=== PATIENT | female | born 1995 | race Asian ===

== ENCOUNTER 2016-07-02 13:17 | Inpatient (IN) | payer OTHER ==
[~2016-07-02] VITALS: Ht 162.6 cm; Wt 57.2 kg
[2016-07-02 14:30] LABS: BASO % 0.2 %; BASO ABS # 0.01 K/uL (0-0.2); COMPLETE YES; EOS % 1.5 %; HEMATOCRIT 38.6 % (37-47); IG% 0.2 %; LYMPH % 38.7 %; LYMPH ABS # 1.85 K/uL (1.2-3.4); MEAN CELL VOLUME 88.7 fL (80-100); MEAN CORPUSCULAR HEMOGLOBIN 31.3 pg (25-34); MEAN CORPUSCULAR HGB CONC 35.2 g/dl (32-36); MEAN PLATELET VOLUME 8.5 fL (7.4-10.4); MONO % 6.7 %; NEUT % 52.7 %; PLATELET COUNT 218 K/uL (130-400); RED BLOOD COUNT 4.35 M/uL (4.2-5.4); WHITE BLOOD COUNT 4.78 K/uL (4.8-10.8)
[2016-07-02 14:32] LABS: URINE APPEARANCE CLEAR (CLEAR); URINE BILIRUBIN NEG (NEG); URINE COLOR YELLOW; URINE NITRITE NEG (NEG); URINE PH 7.5 (4.5-7.5); URINE SPECIFIC GRAVITY 1.012 (1.000-1.030); UROBILINOGEN NEG (NEG); ZZUR CULT IF INDIC CLEAN CATCH NO
[2016-07-02 14:41] LABS: MANUAL MICROSCOPIC REQUIRED? NO; REVIEW REQ? NO
[2016-07-02 14:49] LABS: ALT/SGPT 17 U/L (12-78); AST/SGOT 14 U/L (15-37); BLOOD UREA NITROGEN 7 mg/dl (7-18); BUN/CREATININE RATIO 13.1 (10-20); CALCIUM 8.7 mg/dl (8.5-10.1); CARBON DIOXIDE 28 mmol/L (21-32); CHLORIDE 108 mmol/L (98-107); CREATININE 0.57 mg/dl (0.60-1.20); GLUCOSE 94 mg/dl (70-99); POTASSIUM 3.7 mmol/L (3.5-5.1); SODIUM 142 mmol/L (136-145)
[2016-07-02 14:51] LABS: BENZODIAZEPINE, URINE NEG (NEG); COCAINE,URINE NEG (NEG); PHENCYCLIDINE, URINE NEG (NEG)
[2016-07-02 14:54] LABS: ACETAMINOPHEN < 2 ug/ml (10-30)
[2016-07-02 15:00] LABS: ALB/GLOB RATIO 1.3 (0.9-2); ALKALINE PHOSPHATASE 69 U/L (45-117); THYROID STIMULATING HORMONE 0.936 uIu/ml (0.300-4.500)
[2016-07-02 15:35] VITALS: O2SAT 98
[2016-07-02] MEDS ORDERED: MAGNESIUM HYDROXIDE SUSP 30 ML UDC PO PRN (16:15)
[2016-07-02] MEDS ORDERED: hydrOXYzine HCL 25 MG TAB PO PRN ×2 (16:15)
[2016-07-02] MEDS ORDERED: ALUMINUM/MAGNESIUM SUSP 30 ML UDC PO PRN (16:15)
[2016-07-02] MEDS ORDERED: ACETAMINOPHEN 325 MG TAB PO PRN (16:15)
[2016-07-02] MEDS ORDERED: SODIUM CHLORIDE 0.65% NA SOLN 45 ML (OCEAN) PRN (16:15)
[2016-07-02] MEDS ORDERED: BISMUTH SUBSALICYLATE PER ML OMNICELL CHARGE PO PRN (16:15)
--- NOTE | 2016-07-02 16:19 | EMERGENCY ROOM VISIT NOTE ---
History First contact with patient: 14:00 Chief Complaint: MENTAL HEALTH EVALUATION Stated Complaint: SEVERE DEPRESSOIN History of Present Illness The patient is a 21 year old female who was sent here by her counselor presents to the Emergency Room with complaints of severe depression and thoughts of suicide. The patient states that she has had depression most of her life. She has refused to be on any depression medications in the past. The patient has tried to commit suicide in the past with cutting and overdose of Benadryl. The patient states that recently her depressive symptoms have been getting worse especially since last . She was thinking of cutting herself or trying to obtain blood thinners and overdosing on blood thinners. She saw her counselor, Marni on Wednesday and told her of her thoughts and feelings. Her counselor set her up for a psych evaluation at [facility] for next Wednesday. She went back to her counselor, Marni today and she referred her to the ER for her suicidal ideations. The patient states that she is a senior at [employer] and does not have a job lined up for after graduation. 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 Although the patient now states that her friend from [place] was here to visit this weekend and she has a plan now after graduation to move to [place] with her friend and just find a job when she gets there. The patient states that her parents are and she does not feel that she can talk to them about her problems. She has 2 siblings a sister who is 25 and a brother who is 24. She is able to talk with her sister but most of her support comes from her friends. The patient continues to admit to suicidal ideations of cutting herself or overdosing on some type of medication. She denies any homicidal ideations. She is eating okay she states that she is sleeping more than normal. She has missed a few classes over the last several days. The patient is only activity is that she likes to run on occasion. She does not have any other hobbies. The patient denies any medical problems. The patient does admit to have an ovarian cyst removed in the past. The patient denies current tobacco use or any alcohol use. The patient denies any illicit drug use. Review of Systems 10 system review was performed and was negative unless stated otherwise history of present illness. Past Medical/Surgical History Ovarian cyst removal, depression, suicidal ideations Social History Smoking Status: Former Smoker Alcohol Use: none Drug Use: none Marital Status: single Housing Status: lives with roommate Occupation Status: [employer] student Current/Historical Medications No Active Prescriptions or Reported Meds Allergies Coded Allergies: Apple (Unverified Allergy, Unknown, ITCHY, 07/02/16) BEE STING (Unverified Allergy, Unknown, SWELLING, 07/02/16) Physical Exam Vital Signs Date Time Temp Pulse Resp B/P Pulse Ox O2 Delivery O2 Flow Rate FiO2 07/02/16 13:20 36.6 74 16 123/79 96 Physical Exam GENERAL: 21-year-old female appears in no acute distress. MENTAL Status: Patient is alert and oriented 3. The patient's affect is flat. She is not tearful. She answers questions appropriately. She is not aggressive in nature. EYES: PERRLA. EOMs intact. EARS: Canals clear. TMs without fluid level noted. NECK: Supple, no lymphadenopathy noted. No carotid bruits noted. LUNGS: Clear auscultation without wheezes rales or rhonchi. CARDIAC: Regular rate and rhythm without murmur. Pulses is full and equal throughout. ABDOMEN: Positive bowel sounds all 4 quadrants. Soft, nontender to palpation without organomegaly or masses. NEURO:Cranial nerves two through 12 intact. Cerebellar function intact with [id number]. Fine motor intact with alternating finger motions. MUSCULOSKELETAL: Entire spine nontender to palpation. Full range of motion of both upper and lower extremities without difficulty. Medical Decision & Procedures Laboratory Results 07/02/16 14:15 Red Blood Count 4.35, Mean Corpuscular Volume 88.7, Mean Corpuscular Hemoglobin 31.3, Mean Corpuscular Hemoglobin Concent 35.2, Mean Platelet Volume 8.5, Neutrophils (%) (Auto) 52.7, Lymphocytes (%) (Auto) 38.7, Monocytes (%) (Auto) 6.7, Eosinophils (%) (Auto) 1.5, Basophils (%) (Auto) 0.2, Neutrophils # (Auto) 2.52, Lymphocytes # (Auto) 1.85, Monocytes # (Auto) 0.32, Eosinophils # (Auto) 0.07, Basophils # (Auto) 0.01 07/02/16 14:15 Test 07/02/16 13:30 07/02/16 14:15 Urine Color YELLOW Urine Appearance CLEAR (CLEAR) Urine pH 7.5 (4.5-7.5) Urine Specific [place] 1.012 (1.000-1.030) Urine Protein NEG (NEG) Urine Glucose (UA) NEG (NEG) Urine Ketones NEG (NEG) Urine Occult Blood NEG (NEG) Urine Nitrite NEG (NEG) Urine Bilirubin NEG (NEG) Urine Urobilinogen NEG (NEG) Urine Leukocyte Esterase NEG (NEG) Urine Test NEG (NEG) Urine Opiates Screen NEG (NEG) Urine Methadone, Qualitative NEG (NEG) Urine Barbiturates NEG (NEG) Urine Phencyclidine (PCP) Level NEG (NEG) Ur Amphetamine/Methamphetamine NEG (NEG) MDMA (Ecstasy) Screen NEG (NEG) Urine Benzodiazepines Screen NEG (NEG) Urine Cocaine Metabolite NEG (NEG) Urine Marijuana (THC) NEG (NEG) White Blood Count 4.78 K/uL (4.8-10.8) Red Blood Count 4.35 M/uL (4.2-5.4) Hemoglobin 13.6 g/dL (12.0-16.0) Hematocrit 38.6 % (37-47) Mean Corpuscular Volume 88.7 fL (80-100) Mean Corpuscular Hemoglobin 31.3 pg (25-34) Mean Corpuscular Hemoglobin Concent 35.2 g/dl (32-36) Platelet Count 218 K/uL (130-400) Mean Platelet Volume 8.5 fL (7.4-10.4) Neutrophils (%) (Auto) 52.7 % Lymphocytes (%) (Auto) 38.7 % Monocytes (%) (Auto) 6.7 % Eosinophils (%) (Auto) 1.5 % Basophils (%) (Auto) 0.2 % Neutrophils # (Auto) 2.52 K/uL (1.4-6.5) Lymphocytes # (Auto) 1.85 K/uL (1.2-3.4) Monocytes # (Auto) 0.32 K/uL (0.11-0.59) Eosinophils # (Auto) 0.07 K/uL (0-0.5) Basophils # (Auto) 0.01 K/uL (0-0.2) RDW Standard Deviation 39.0 fL (36.4-46.3) RDW Coefficient of Variation 12.1 % (11.5-14.5) Immature Granulocyte % (Auto) 0.2 % Immature Granulocyte # (Auto) 0.01 K/uL (0.00-0.02) Anion Gap 6.0 mmol/L (3-11) Est Creatinine Clear Calc Drug Dose 133.8 ml/min Estimated GFR () > 150.0 Estimated GFR (Non- 131.6 BUN/Creatinine Ratio 13.1 (10-20) Calcium Level 8.7 mg/dl (8.5-10.1) Total Bilirubin 0.6 mg/dl (0.2-1) Aspartate Amino Transf (AST/SGOT) 14 U/L (15-37) Alanine Aminotransferase (ALT/SGPT) 17 U/L (12-78) Alkaline Phosphatase 69 U/L (45-117) Total Protein 7.0 gm/dl (6.4-8.2) Albumin 3.9 gm/dl (3.4-5.0) Globulin 3.1 gm/dl (2.5-4.0) Albumin/Globulin Ratio 1.3 (0.9-2) Thyroid Stimulating Hormone (TSH) 0.936 uIu/ml (0.300-4.500) Salicylates Level < 1.7 mg/dl (2.8-20) Acetaminophen Level < 2 ug/ml (10-30) Ethyl Alcohol mg/dL < 3.0 mg/dl (0-3) ED Course The patient was evaluated. Urinalysis, urine tox screen was ordered. CBC complete metabolic profile, TSH, medical alcohol, acetaminophen and salicylate level were ordered. Labs are reviewed and were unremarkable. Urinalysis was negative. Urine tox screen was negative. The patient was evaluated by psychology. Psychiatry recommended that the patient be admitted. The patient was admitted. Impression Primary Impression: Depression Additional Impression: Suicidal ideation Departure Information Dispostion Admitted as an inpatient Condition GOOD Prescriptions No Active Prescriptions or Reported Meds Referrals No Doctor, Assigned (PCP) Forms HOME CARE DOCUMENTATION FORM, IMPORTANT VISIT INFORMATION Patient Instructions [facility] Health Problem Qualifiers Primary Impression: Depression Depression Type: unspecified Qualified Codes: F32.9 - Major depressive disorder, single episode, unspecified
[2016-07-02 16:38] VITALS: BP 99/65; PULSE 70; TEMP 36.6; Ht 162.6 cm; Wt 57.2 kg
[2016-07-03 06:43] VITALS: BP_SYST 93; BP_SYST 95; BP_DIAS 60; BP_DIAS 62; PULSE 66; PULSE 71; TEMP 36.5
[2016-07-03] MEDS ORDERED: FLUOXETINE HCL 10 MG CAP PO ONE (14:00)
--- NOTE | 2016-07-03 14:01 | Psychiatric History & Physical ---
History Date of Service Jul 03, 2016. 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 Carlene Torre was admitted on a 201 voluntary commitment for suicidal ideation. Chief Complaint "I started cutting again". History of Present Illness Carlene relates a history of depressive symptoms throughout middle/high school with family stressors. At one point she was engaging in superficial self mutilation on an almost daily basis to relieve stress. She states that this semester has been difficult as taking 6 classes and "going through the motions" to complete graduation requirements. She admits to superficial cut last week due to stress and passive wish/urges to self injure at various points this semester. Low energy, anhedonia and increased sleep worsened in past 2-3 weeks despite counseling with someone from a local denominational. She had increased thoughts to cut, thought that if she somehow procured blood thinners it would be a good way to end her life. She states that she and her roommate have a superficially amicable relationship but that her roommate noticed she's not herself. 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 She identifies her sister in [facility] as main support and relates that her mother previously accused her of having an inappropriate relationship with her brother (patient denies). She denies any history of manic symptoms. She does endorse anxiety about her future and nonspecific social anxiety related to crowds/etc. She has some history of nightmares but in general has been sleeping 9 hours as of late. She fails to endorse any psychotic symptoms. Past Psychiatric History Current OP Treatment: no current treatment (other than rastafari counseling) Prior OP Treatment: therapist (few sessions at [facility] last school year; also attended group therapy for depression) Prior Psych Hospitalizations: none Access to a Gun: No Suicide Attempts: Yes (has taken Benadryl in past, no treatment; cutting was SIB not attempt) Past Medication Trials none Past Medical/Surgical History History of Concussion/Seizure: No remote hx of ovarian cyst Allergies Allergies: Coded Allergies: Apple (Unverified Allergy, Unknown, ITCHY, 07/02/16) BEE STING (Unverified Allergy, Unknown, SWELLING, 07/02/16) Home Medications No Active Prescriptions or Reported Meds Family History History of Suicide: No History of Substance Abuse: No Psychiatric History: Yes father--schizophrenia mother/sibs--anxiety/depression Alcohol Use Alcohol Use In Past 12 Months: Yes (drinks one drink less than once per week.) AUDIT Total Score: 2 Smoking Use Smoking Status: Former Smoker Substance History denied since more rastafari, occasional MJ prior to 1 year ago. Personal History Childhood: parents , youngest of 3 sibs Education: started college (few weeks from graduation) Work History: student Relationship History: never Children: none Spiritual Affiliation: Buddhism within past year Legal History: none Psychological Trauma History: Other (denied sexual abuse) Review of Systems Psych: denies symptoms other than stated above Constitutional: denied Cardiovascular: denied GI: denied Neurologic: denied Remainder of 10 body systems also reviewed and denied other than noted above. Examination Physical Examination A physical exam was performed in the ER by TESS Pryor prior to admission to the unit. I accept that physical as correct/medical clearance for the inpatient physical exam. Vital Signs Vital Signs Past 12 Hours Date Time Temp Pulse Resp B/P Pulse Ox O2 Delivery O2 Flow Rate FiO2 07/03/16 06:43 36.5 66 18 93/62 71 95/60 Laboratory Results Last 24 Hours Test 07/02/16 14:15 White Blood Count 4.78 K/uL Red Blood Count 4.35 M/uL Hemoglobin 13.6 g/dL Hematocrit 38.6 % Mean Corpuscular Volume 88.7 fL Mean Corpuscular Hemoglobin 31.3 pg Mean Corpuscular Hemoglobin Concent 35.2 g/dl Platelet Count 218 K/uL Mean Platelet Volume 8.5 fL Neutrophils (%) (Auto) 52.7 % Lymphocytes (%) (Auto) 38.7 % Monocytes (%) (Auto) 6.7 % Eosinophils (%) (Auto) 1.5 % Basophils (%) (Auto) 0.2 % Neutrophils # (Auto) 2.52 K/uL Lymphocytes # (Auto) 1.85 K/uL Monocytes # (Auto) 0.32 K/uL Eosinophils # (Auto) 0.07 K/uL Basophils # (Auto) 0.01 K/uL RDW Standard Deviation 39.0 fL RDW Coefficient of Variation 12.1 % Immature Granulocyte % (Auto) 0.2 % Immature Granulocyte # (Auto) 0.01 K/uL Sodium Level 142 mmol/L Potassium Level 3.7 mmol/L Chloride Level 108 mmol/L Carbon Dioxide Level 28 mmol/L Anion Gap 6.0 mmol/L Blood Urea Nitrogen 7 mg/dl Creatinine 0.57 mg/dl Est Creatinine Clear Calc Drug Dose 133.8 ml/min Estimated GFR () > 150.0 Estimated GFR (Non- 131.6 BUN/Creatinine Ratio 13.1 Random Glucose 94 mg/dl Calcium Level 8.7 mg/dl Total Bilirubin 0.6 mg/dl Aspartate Amino Transf (AST/SGOT) 14 U/L Alanine Aminotransferase (ALT/SGPT) 17 U/L Alkaline Phosphatase 69 U/L Total Protein 7.0 gm/dl Albumin 3.9 gm/dl Globulin 3.1 gm/dl Albumin/Globulin Ratio 1.3 Thyroid Stimulating Hormone (TSH) 0.936 uIu/ml Salicylates Level < 1.7 mg/dl Acetaminophen Level < 2 ug/ml Ethyl Alcohol mg/dL < 3.0 mg/dl Mental Examination During interview pt is: alert and oriented Appearance: appropriately dressed, appropriately groomed Eye contact is: good Motor behavior is: no abnormal motor movements Speech: normal in rate, rhythm & volume Affect: mood congruent Mood is: depressed Thought process: clear, coherent Suicidal thought are: present, Plan: present, Intent: denied Homicidal thoughts are: denied Hallucinations: denies auditory, denies visual Cognition: language grossly intact Intelligence estimated to be: consistent with level of education Insight: limited Judgement: limited Impression / Recommendations Impression 21 yo female with history of recurrent SIB, presents with SI with plan. The patient is admitted to [facility] ([facility]) on q 15 min checks (behavioral with suicide precautions) for safety. The patient will participate in group, recreational and milieu therapies and will be offered additional individual and family sessions as clinically appropriate. Inventory Assets Strengths: intelligent, brendan Needs: increase in local supports pending graduation Risk Factors Assessment /single/: Yes Access to guns: No Previous attempt: Yes Previous psychiatric stay: No Protective Factors Assessment Shinto beliefs: Yes Employed: No Stable relationships: Yes (denominational, though will be graduating, considering [place]) Recommendations (1) Major depressive disorder, recurrent episode with anxious distress 4/7/17--risks/benefits/alternatives reviewed re: SSRI for rx of depression. Discussion included but was not limited to FDA warnings re: suicidality. Patient agreeable to a trial of Prozac and will start 10 mg today. She would benefit from more formal outpatient counseling and will need a psychiatric prescriber per . CPT Code Initial Hospital Care: 10564
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
[2016-07-04 06:44] VITALS: BP_SYST 84; BP_SYST 96; BP_DIAS 45; BP_DIAS 62; PULSE 54; PULSE 62; TEMP 36.5
--- NOTE | 2016-07-04 07:46 | Psychiatric Progress Notes ---
Progress Note Date of Service Jul 04, 2016. 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 Carlene Torre was admitted on 07/02/16 a 201 voluntary commitment for suicidal ideation to take a tylenol ID and to cut herself in the shower. See full H&P dated 07/03/16 for initial history. Chief Complaint " I took a sleep medication last night and feel groggy this AM". Subjective Patient was seen & assessed interval progress reviewed with Nursing The patient did start prozac 10mg, today is second dose she is not certain if she is having side effects as this AM she did feel restless physical before her AM med she feels the conflict of wanting to sleep more after vistaril 50mg last night and knowing she should get up and go to activities. "I slept" and even now at 11am still feels groggy but feels she can pull herself out of bed after this interview. She denies thoughts for SIB here, but states she still sees suicide as an option meaning she is not actively suicidal but as part of her goals here is " to feel less depressed, and feel that suicide is less of an option" She reports that mood is a 7/10 as she feels hopeful that medications and ongoing treatment may be helpful SHe reports anxiety is a 5/10 worried about the amount of work she has to do She is motivated to participate in outpatient care but is unsure where she will be after graduation as her plans for the summer are in limbo (meaning she is not certain if she will go to the mission trip in [place] and/or if she will followthrough with her plans to move near a friend in [place]). She is graduating in [employer] degree and is not certain what she hopes to do with that degree, and does not have any concrete job options lined up. Review of Systems groggy this AM but o/w denies physical concerns, appetite intact, and denies changes in bowels, no BRYANT Sleep Information Total Hours of Sleep: 5.50 Meal Information Percent of Breakfast Consumed: 20 Percent of Lunch Consumed: 80 Percent of Dinner Consumed: 100 Mental Status Exam During interview pt is: alert and oriented Appearance: appropriately dressed, appropriately groomed Eye contact is: good Motor behavior is: no abnormal motor movements Speech: normal in rate, rhythm & volume Affect: blunted Mood is: depressed (rated however at a 7/10 which seems incongruent) Thought process: clear, coherent Suicidal thought are: present, Plan: present, Intent: denied Homicidal thoughts are: denied Hallucinations: denies auditory, denies visual Cognition: language grossly intact Intelligence estimated to be: consistent with level of education Insight: limited Judgement: limited Impression 21 yo female with history of recurrent SIB, presents with SI with plan. The patient is admitted to [facility] ([facility] mental health unit) on q 15 min checks (behavioral with suicide precautions) for safety. The patient will participate in group, recreational and milieu therapies and will be offered additional individual and family sessions as clinically appropriate. Plan (1) Major depressive disorder, recurrent episode with anxious distress 07/03/16 --risks/benefits/alternatives reviewed re: SSRI for rx of depression. Discussion included but was not limited to FDA warnings re: suicidality. Patient agreeable to a trial of Prozac and will start 10 mg today. She would benefit from more formal outpatient counseling and will need a psychiatric prescriber per SW. 07/04/16 - continue prozac 10mg as she was activated this AM and tired could have been SE of vistaril and/or prozac - change vistaril from 50mg/hs to 25mg at hs by 2100 with repeat x1 by 2300 to reduced Am grogginess - discussed role of aftercare and challenged patient to consider her plans after graduation to assist unit in finding appropriate aftercare, ideally that she would identify where she will spent the next 8-12 weeks after discharge to meet and establish relationship with provider(s) who can assess tolerabiltiy and effiicacy of meds and offer meaningful therapy treatment Discharge / Aftercare Planning Therapist: Name: Marni Blair Date of Appointment: Jul 06, 2016 Monitoring Analyst: Name: None Visit Code E&M Code: 54991 Inventory Assets Strengths: intelligent, brendan Needs: increase in local supports pending graduation Risk Factors Assessment /single/: Yes Previous attempt: Yes Previous psychiatric stay: No Protective Factors Assessment Tenriism beliefs: Yes Employed: No Stable relationships: Yes (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, 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 be 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, considering [place]) Data Vital Signs Last 24 Hrs: Date Time Temp Pulse Resp B/P Pulse Ox O2 Delivery O2 Flow Rate FiO2 07/04/16 06:44 36.5 54 16 84/45 62 96/62 Meds Administered Last 24 Hrs: Meds Administered (Past 24Hrs) Medications (Trade) Dose Ordered Sig/Terry Route Start Time Stop Time Status Last Admin Dose Admin Hydroxyzine HCl (Vistaril Tab) 50 mg HSZ PRN PO 07/02/16 16:15 08/01/16 16:14 07/03/16 23:27 50 MG Fluoxetine HCl (Prozac Cap) 10 mg NOW ONCE PO 07/03/16 14:00 07/03/16 14:05 DC 07/03/16 14:26 10 MG Lab Results Last 24 Hrs: Last 24 Hours Test 07/04/16 07:31 Fasting Glucose 86 mg/dl Triglycerides Level 40 mg/dl Cholesterol Level 151 mg/dl HDL Cholesterol 61 mg/dl LDL Cholesterol, Calculated 82 mg/dl VLDL Cholesterol, Calculated 8 mg/dl Cholesterol/HDL Ratio 2.5 Last 24 Hours Test 07/04/16 07:31
[2016-07-04 08:21] LABS: CHOLESTEROL/HDL RATIO 2.5
[2016-07-04] MEDS: FLUOXETINE HCL 10 MG CAP PO SCH (08:53)
[2016-07-04] MEDS ORDERED: hydrOXYzine HCL 25 MG TAB PO PRN (21:00)
[2016-07-05 06:47] VITALS: BP_SYST 75; BP_SYST 90; BP_DIAS 43; BP_DIAS 60; PULSE 62; PULSE 70; TEMP 36.8
[2016-07-05] MEDS: FLUOXETINE HCL 10 MG CAP PO SCH (08:52)
--- NOTE | 2016-07-05 11:19 | Psychiatric Progress Notes ---
Progress Note Date of Service Jul 05, 2016. 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 Carlene Torre was admitted on 07/02/16 a 201 voluntary commitment for suicidal ideation to take a tylenol ID and to cut herself in the shower. See full H&P dated 07/03/16 for initial history. Chief Complaint "I am less tired today". Subjective Patient was seen & assessed interval progress reviewed with Nursing and chart reviewed She had a visit with sister and a friend yesterday which seemed to go well. She continues on prozac 10mg, she slept overnight with vistaril 25mg x1 She feels "hopeful" and more like she can recover. SHe does feel a little shaky at this moment but has had a cup of coffee this AM and "i just exercised" She did not feel this way upon waking. SHe denies other overt SE of her prozac. She continues to consider her plans post graduation, will be in [facility] for a few months (e.g. meaning a mission trip in [place]) but if not she may try to go to [place] sooner. SHe does not have a PCM. Review of Systems No physical symptoms other than described above. Sleep Information Total Hours of Sleep: 6.50 Meal Information Percent of Breakfast Consumed: 99 Percent of Lunch Consumed: 100 Percent of Dinner Consumed: 100 Mental Status Exam During interview pt is: alert and oriented Appearance: appropriately dressed, appropriately groomed Eye contact is: good Motor behavior is: no abnormal motor movements Speech: normal in rate, rhythm & volume Affect: euthymic Mood is: other (today is "hopeful") Thought process: clear, coherent Suicidal thought are: present, Plan: present, Intent: denied Homicidal thoughts are: denied Hallucinations: denies auditory, denies visual Cognition: language grossly intact Intelligence estimated to be: consistent with level of education Insight: limited Judgement: limited Impression 21 yo female with history of recurrent SIB, presents with SI with plan. The patient is admitted to [facility] ([facility] inpatient mental health unit) on q 15 min checks (behavioral with suicide precautions) for safety. The patient will participate in group, recreational and milieu therapies and will be offered additional individual and family sessions as clinically appropriate. Plan (1) Major depressive disorder, recurrent episode with anxious distress 07/03/16 --risks/benefits/alternatives reviewed re: SSRI for rx of depression. Discussion included but was not limited to FDA warnings re: suicidality. Patient agreeable to a trial of Prozac and will start 10 mg today. She would benefit from more formal outpatient counseling and will need a psychiatric prescriber per . 07/04/16 - continue prozac 10mg as she was activated this AM and tired could have been SE of vistaril and/or prozac - change vistaril from 50mg/hs to 25mg at hs by 2100 with repeat x1 by 2300 to reduced Am grogginess - discussed role of aftercare and challenged patient to consider her plans after graduation to assist unit in finding appropriate aftercare, ideally that she would identify where she will spent the next 8-12 weeks after discharge to meet and establish relationship with provider(s) who can assess tolerability and efficacy of meds and offer meaningful therapy treatment 07/05/16 - continue vistaril 25mg/bedtime and prozac 10mg/d watching for activation as she feels mildly "jittery" this AM - the major issue is the patient's uncertainty with her destination after discharge and college graduation and where to get care, encouraged patient to consider location where she can have 1-3 months of continuity to have some stable f/u care and to make a firm footed move to [place] if she still intends to go there. Discharge / Aftercare Planning Therapist: Name: Marni Blair Date of Appointment: Jul 06, 2016 Hammer Fitter: Name: None Visit Code E&M Code: 28301 Inventory Assets Strengths: intelligent, brendan Needs: increase in local supports pending graduation Risk Factors Assessment /single/: Yes Previous attempt: Yes Previous psychiatric stay: No Protective Factors Assessment Congregation beliefs: Yes Employed: No Stable relationships: Yes (sikhism, though will be graduating, considering [place]) Data Vital Signs Last 24 Hrs: Date Time Temp Pulse Resp B/P Pulse Ox O2 Delivery O2 Flow Rate FiO2 07/05/16 06:47 36.8 62 16 75/43 70 90/60 Meds Administered Last 24 Hrs: Meds Administered (Past 24Hrs) Medications (Trade) Dose Ordered Sig/Terry Route Start Time Stop Time Status Last Admin Dose Admin Fluoxetine HCl (Prozac Cap) 10 mg QAM PO 07/04/16 09:00 08/03/16 08:59 07/04/16 08:53 10 MG Fluoxetine HCl (Prozac Cap) 10 mg NOW ONCE PO 07/03/16 14:00 07/03/16 14:05 DC 07/03/16 14:26 10 MG Hydroxyzine HCl (Vistaril Tab) 25 mg HSZ PRN PO 07/04/16 21:00 08/03/16 20:59 07/04/16 22:31 25 MG
[2016-07-06 06:47] VITALS: BP_SYST 90; BP_SYST 93; BP_DIAS 55; BP_DIAS 59; PULSE 60; PULSE 79; TEMP 36.6
[2016-07-06] MEDS: FLUOXETINE HCL 10 MG CAP PO SCH (09:04)
--- NOTE | 2016-07-06 10:57 | Psychiatric Progress Notes ---
Progress Note Date of Service Jul 06, 2016. Interval History Carlene Torre is a 21-year-old female, [employer] student who lives in town with a roommate. Carlene Torre was admitted on 07/02/16 a 201 voluntary commitment for suicidal ideation to take a tylenol ID and to cut herself in the shower. See full H&P dated 07/03/16 for initial history. Chief Complaint "Pretty good". Subjective Patient was seen & assessed interval progress reviewed with Treatment Team. Staff report she is going to groups and socializing more. She says mood is improving, she feels more hopeful and "optimistic in general." She denies SI. Appetite and sleep are improving. Hydroxyzine is helping, and 25mg seems to work without AM grogginess. Tried to sleep without medication last night and had a bad dream which woke her up, but was able to fall back to sleep. She is " a little nervous" about going back to school, and recognizes that she puts a lot of pressure on herself, "socially and academically." She feels she needs to "perform a certain way, be a certain way." She has worked on "being kind to myself" in therapy, but struggles with "feeling like I was failing." She is having a meeting with her friend this afternoon and thinks it would be helpful for her friend to know how to best support her. She says she is 95% sure she'll move to [place] and live with her friend after the semester ends. She denies SEs to antidepressant medication. Sleep Information Total Hours of Sleep: 7.00 Meal Information Percent of Breakfast Consumed: 60 Percent of Lunch Consumed: 100 Percent of Dinner Consumed: 100 Mental Status Exam During interview pt is: alert and oriented, cooperative Appearance: appropriately dressed, appropriately groomed Eye contact is: good Motor behavior is: no abnormal motor movements Speech: normal in rate, rhythm & volume Affect: euthymic Mood is: other ("pretty good") Thought process: clear, coherent Suicidal thought are: denied Homicidal thoughts are: denied Hallucinations: denies auditory, denies visual Cognition: language grossly intact Intelligence estimated to be: consistent with level of education Insight: limited Judgement: limited Impression 21 yo female with history of recurrent SIB, presents with SI with plan. The patient is admitted to [facility] (locked inpatient mental health unit) on q 15 min checks (behavioral with suicide precautions) for safety. The patient will participate in group, recreational and milieu therapies and will be offered additional individual and family sessions as clinically appropriate. Plan (1) Major depressive disorder, recurrent episode with anxious distress 07/03/16 --risks/benefits/alternatives reviewed re: SSRI for rx of depression. Discussion included but was not limited to FDA warnings re: suicidality. Patient agreeable to a trial of Prozac and will start 10 mg today. She would benefit from more formal outpatient counseling and will need a psychiatric prescriber per SW. 07/04/16 - continue prozac 10mg as she was activated this AM and tired could have been SE of vistaril and/or prozac - change vistaril from 50mg/hs to 25mg at hs by 2100 with repeat x1 by 2300 to reduced Am grogginess - discussed role of aftercare and challenged patient to consider her plans after graduation to assist unit in finding appropriate aftercare, ideally that she would identify where she will spent the next 8-12 weeks after discharge to meet and establish relationship with provider(s) who can assess tolerability and efficacy of meds and offer meaningful therapy treatment 07/05/16 - continue vistaril 25mg/bedtime and prozac 10mg/d watching for activation as she feels mildly "jittery" this AM - the major issue is the patient's uncertainty with her destination after discharge and college graduation and where to get care, encouraged patient to consider location where she can have 1-3 months of continuity to have some stable f/u care and to make a firm footed move to [place] if she still intends to go there. Discharge / Aftercare Planning Therapist: Name: Marni Blair Date of Appointment: Jul 06, 2016 Tire Shop Manager: Name: None Visit Code E&M Code: 36232 Inventory Assets Strengths: intelligent, brendan Needs: increase in local supports pending graduation Risk Factors Assessment /single/: Yes Previous attempt: Yes Previous psychiatric stay: No Protective Factors Assessment Worship beliefs: Yes Employed: No Stable relationships: Yes (adventism, though will be graduating, considering [place]) Data Vital Signs Last 24 Hrs: Date Time Temp Pulse Resp B/P Pulse Ox O2 Delivery O2 Flow Rate FiO2 07/06/16 06:47 36.6 60 16 93/59 79 90/55 Meds Administered Last 24 Hrs: Meds Administered (Past 24Hrs) Medications (Trade) Dose Ordered Sig/Terry Route Start Time Stop Time Status Last Admin Dose Admin Hydroxyzine HCl (Vistaril Tab) 25 mg HSZ PRN PO 07/04/16 21:00 08/03/16 20:59 07/04/16 22:31 25 MG
--- NOTE | 2016-07-06 11:20 | Medical Student: BHU Only ---
Psychiatric Progress Note IDENTIFYING INFORMATION: Patient is a 21 yo. female with a history of depression and self-injurious behavior who presented for severe depression and thoughts of suicide, after she disclosed an episode of cutting to her counselor. CC: "I feel good" SUBJECTIVE: The patient was seen and assessed today and chart notes from the weekend were reviewed. The patient reports feeling "good" today, she rates her mood as a 6-7 /10. She also states to be feeling more hopeful today. She states she feels back to her normal self, "not jittery at all". She reports she had approximately 8.5 hours of sleep (from 12-8:30am). She did have a nightmare during the night, but was able to go back to sleep after praying. She says her appetite is good. She says she is planning on going to [place] after graduation. Her sister visited over the weekend and she says her sister seems ok with the idea, which has brought her some relief although she says she still feels some guilt over it. PHQ9= 04/06 ROS: General: feels well, no jitteriness. Denies any side effects from the Prozac. Sleep: 8.5 hours last night, able to fall asleep after 2 attempts Appetite: good, "back to normal" OBJECTIVE: MSE: Appearance is that of a well nourished, casually dressed female who appears her stated age. The patient is cooperative with the interview. Eye contact is good (improved from last visit). Motor behavior is normal. Speech: Regular volume, rate and tone]. Affect: euthymic, full and appropriate. Mood: "good". Thought process: goal directed. Thought content: looking forward to leaving and finishing up the semester and graduating. Less preoccupied with plans after graduation. Perception: [depersonalization, illusions, hallucinations]. Cognition: The patient is oriented to person, place and time. Immediate and recent recall is intact to three objects. The patient concentration [spell "world" forward and backwards or serial 7s]. General fund of knowledge:able to name current and past presidents. Intelligence is estimated to be average. Insight is estimated to be fair. Judgment is estimated to be fair. ASSESSMENT: Patient is a 21 yo. female with a history of depression and self- injurious behavior who presented for severe depression and thoughts of suicide, after she disclosed an episode of cutting to her counselor. She is currently being managed in our unit for Major Depressive Disorder. Today, she appears much better than during our last conversation 3 days ago. She is able to maintain good eye contact, she seems more alert and lively. Staff also reports she has been interacting more with peers here and attending group activities. We have been monitoring for side effects since she was started on 10mg of Prozac 3 days ago. There was some concern regarding jitteriness and difficulty sleeping, however it has been difficult to assess due to the fact she just re- started drinking coffee after one month off of it. She also took Hydroxyzine prior to bed over the weekend which made her drowsy during the following day. Today, she is abstaining from coffee and is off the Hydroxyzine and we will be able to better monitor for SEs. I would like to continue monitoring her today and I am considering bringing her up to 20mg of the Prozac as we prepare for discharge. We will be having a "family meeting" today, but patient requested her friend from [place] be involved, instead of her family. PLAN: 1. Major depressive disorder - severe - Encouraged well being actions including writing and drawing. - Encouraged attendance to group meetings and interaction with other unit residents in the common area. - Continue Prozac 10mg PO qam; will consider bringing her up to 20mg pending how she feels today. - 15-minute checks for suicide precaution
[2016-07-07 06:51] VITALS: BP_SYST 90; BP_SYST 98; BP_DIAS 57; BP_DIAS 62; PULSE 59; PULSE 79; TEMP 36.5
[2016-07-07] MEDS: FLUOXETINE HCL 10 MG CAP PO SCH (08:45)
[2016-07-07] MEDS ORDERED: FLUO10CA24 PO (11:31)
--- NOTE | 2016-07-07 11:42 | Discharge Instructions ---
Discharge Information Report Includes Report will include the: Discharge Instructions & Summary Admission Admission Date / Time: Jul 02, 2016 at 15:56 Reason for Admission: Depression Discharge Discharge Diagnosis / Problem: Depression Discharge Goals Goal(s): Decrease discomfort, Improve disease control, Prevent Disease Progression Activity Recommendations Activity Limitations: resume your previous activity . Instructions / Follow-Up Instructions / Follow-Up . SPECIAL CARE INSTRUCTIONS: 1. Follow through with your scheduled aftercare appointments. If unable to keep an appointment, please call to reschedule. 2. Take your medication only as prescribed. Medication should not be changed or stopped without the approval of your doctor. In the event of worsening symptoms or concerns about side effects, contact your doctor immediately. 3. Utilize new healthy coping skills, anger management skills, and stress management skills learned during your hospitalization. Journal feelings and process them with a support person. Identify stressors or situations that may result in relapse, deterioration or inappropriate behaviors and develop a plan to deal with those issues. 4. If your coping skills are ineffective and you are in crisis, contact your outpatient providers for direction. If unable to reach your providers, please call the CAN HELP LINE AT or go to the closest Emergency Room. 5. Avoid alcohol and un-prescribed drugs. 6. You have been provided with the Mental Health Advance Directives Pamphlet for your review. AFTERCARE APPOINTMENTS: * Please call your insurance company prior to your scheduled appointment to confirm your aftercare providers are covered. Take your insurance information to your appointments. . Discharge / Aftercare Planning Psychiatrist: Name: GABBY Therapist: Name Of Therapist: Marni Blair Phone Number: [phone] Date of Appointment: Jul 06, 2016 Air Valve Mechanic: Name: None Other: Name of Appointment #1: Groups at [facility] for General Undergrad Support Phone Number: [phone] Date of Appointment #1: Jul 10, 2016 Time of Appointment #1: 1245 Appointment #1 Notes: every wednesday for group therapy . Follow-Up Care Plan for Follow-Up Care: the patient will have providers at [facility] for the remainder of the semester Current Hospital Diet Patient's current hospital diet: Regular Diet Discharge Diet Recommended Diet: Regular Diet Procedures Procedures Performed: No Pending Studies Pending Studies at Discharge: No Medical Emergencies . Who to Call and When: Medical Emergencies: For questions or emergencies related to your hospital stay, please contact the Inpatient Behavioral Health Unit at [phone]. A city council member is on-call 19/10 for the Behavioral Health Unit for emergencies At any time you feel your situation is an emergency, you may also call 911 immediately. . Non-Emergent Contact Non-Emergency issues call your: Psychiatrist, Therapist Advance Directives Existing Advance Directive: No Do You Have an Existing Mental: No Existing Living Will: No Existing Power of Sawmill Moulder Operator: No Advance Directives Info Given: To Pt/S.O. Advance Directives Reason: Declines as Mental Health Visit. Discharge Summary Admission HPI Per the Admitting provider: Carlene relates a history of depressive symptoms throughout middle/high school with family stressors. At one point she was engaging in superficial self mutilation on an almost daily basis to relieve stress. She states that this semester has been difficult as taking 6 classes and "going through the motions" to complete graduation requirements. She admits to superficial cut last week due to stress and passive wish/urges to self injure at various points this semester. Low energy, anhedonia and increased sleep worsened in past 2-3 weeks despite counseling with someone from a local gnosticist. She had increased thoughts to cut, thought that if she somehow procured blood thinners it would be a good way to end her life. She states that she and her roommate have a superficially amicable relationship but that her roommate noticed she's not herself. 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 She is scheduled to do some form of mission work in [place] but states that others told her maybe she shouldn't go given recent stressors. She identifies her sister in [facility] as main support and relates that her mother previously accused her of having an inappropriate relationship with her brother (patient denies). She denies any history of manic symptoms. She does endorse anxiety about her future and nonspecific social anxiety related to crowds/etc. She has some history of nightmares but in general has been sleeping 9 hours as of late. She fails to endorse any psychotic symptoms. Hospital Course (1) Major depressive disorder, recurrent episode with anxious distress 07/03/16 --risks/benefits/alternatives reviewed re: SSRI for rx of depression. Discussion included but was not limited to FDA warnings re: suicidality. Patient agreeable to a trial of Prozac and will start 10 mg today. She would benefit from more formal outpatient counseling and will need a psychiatric prescriber per SW. 07/04/16 - continue prozac 10mg as she was activated this AM and tired could have been SE of vistaril and/or prozac - change vistaril from 50mg/hs to 25mg at hs by 2100 with repeat x1 by 2300 to reduced Am grogginess - discussed role of aftercare and challenged patient to consider her plans after graduation to assist unit in finding appropriate aftercare, ideally that she would identify where she will spent the next 8-12 weeks after discharge to meet and establish relationship with provider(s) who can assess tolerability and efficacy of meds and offer meaningful therapy treatment 07/05/16 - continue vistaril 25mg/bedtime and prozac 10mg/d watching for activation as she feels mildly "jittery" this AM - the major issue is the patient's uncertainty with her destination after discharge and college graduation and where to get care, encouraged patient to consider location where she can have 1-3 months of continuity to have some stable f/u care and to make a firm footed move to [place] if she still intends to go there. Risk Factors Assessment /single/: Yes Previous attempt: Yes Previous psychiatric stay: No Protective Factors Assessment Restoration beliefs: Yes Employed: No Stable relationships: Yes (gnosticist, though will be graduating, considering [place]) Day of Discharge Assessment COURSE OF HOSPITALIZATION: During the patient's 5 day stay, she was stabilized on Lexapro 10 mg daily and tolerated this without side effect. 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 She also is hoping to move to [place] to reestablish with her good friend with meeting during her hospital stay. She and her friend have been tremendous supports to one another and their hope is that Carlene will be able to move there this is proximity. During her stay, the patient's suicidal ideations abated, she was more future focused. She talked about her brendan, needing to rely on it even when she is feeling down. She will be graduating in July which is going to make the psychiatric aftercare difficult however is likely going to except her into their clinic until she graduates in July. DAY OF DISCHARGE ASSESSMENT: Today the patient is requesting discharge. She says she feels safe to go home, and is without suicidal ideation. She feels that her mood is improved and is happy to be taking Prozac. She has a safety plan in mind in the event of her mood deteriorates which includes reaching out to friends which she was not doing previously. Today she is casually and appropriately dressed and groomed. Gait and station are within normal limits. Eye contact is good. Affect is restricted but able to smile. Speech is of normal rate volume and tone. Thoughts are organized and goal directed, and without evidence of thought disorder. Recent and remote memory are intact per conversation. Intelligence is estimated to be average. Insight and judgment are improved over admission. Laboratory Test 07/02/16 13:30 07/02/16 14:15 07/04/16 07:31 Urine Color YELLOW Urine Appearance CLEAR Urine pH 7.5 Urine Specific [place] 1.012 Urine Protein NEG Urine Glucose (UA) NEG Urine Ketones NEG Urine Occult Blood NEG Urine Nitrite NEG Urine Bilirubin NEG Urine Urobilinogen NEG Urine Leukocyte Esterase NEG Urine Test NEG Urine Opiates Screen NEG Urine Methadone, Qualitative NEG Urine Barbiturates NEG Urine Phencyclidine (PCP) Level NEG Ur Amphetamine/Methamphetamine NEG MDMA (Ecstasy) Screen NEG Urine Benzodiazepines Screen NEG Urine Cocaine Metabolite NEG Urine Marijuana (THC) NEG White Blood Count 4.78 Red Blood Count 4.35 Hemoglobin 13.6 Hematocrit 38.6 Mean Corpuscular Volume 88.7 Mean Corpuscular Hemoglobin 31.3 Mean Corpuscular Hemoglobin Concent 35.2 Platelet Count 218 Mean Platelet Volume 8.5 Neutrophils (%) (Auto) 52.7 Lymphocytes (%) (Auto) 38.7 Monocytes (%) (Auto) 6.7 Eosinophils (%) (Auto) 1.5 Basophils (%) (Auto) 0.2 Neutrophils # (Auto) 2.52 Lymphocytes # (Auto) 1.85 Monocytes # (Auto) 0.32 Eosinophils # (Auto) 0.07 Basophils # (Auto) 0.01 RDW Standard Deviation 39.0 RDW Coefficient of Variation 12.1 Immature Granulocyte % (Auto) 0.2 Immature Granulocyte # (Auto) 0.01 Sodium Level 142 Potassium Level 3.7 Chloride Level 108 Carbon Dioxide Level 28 Anion Gap 6.0 Blood Urea Nitrogen 7 Creatinine 0.57 Est Creatinine Clear Calc Drug Dose 133.8 Estimated GFR () > 150.0 Estimated GFR (Non- 131.6 BUN/Creatinine Ratio 13.1 Random Glucose 94 Calcium Level 8.7 Total Bilirubin 0.6 Aspartate Amino Transferase (AST) 14 Alanine Aminotransferase (ALT) 17 Alkaline Phosphatase 69 Total Protein 7.0 Albumin 3.9 Globulin 3.1 Albumin/Globulin Ratio 1.3 Thyroid Stimulating Hormone (TSH) 0.936 Salicylates Level < 1.7 Acetaminophen Level < 2 Ethyl Alcohol mg/dL < 3.0 Fasting Glucose 86 Triglycerides Level 40 Cholesterol Level 151 HDL Cholesterol 61 LDL Cholesterol, Calculated 82 VLDL Cholesterol, Calculated 8 Cholesterol/HDL Ratio 2.5 Total Time Total Time Spent (min): Greater than 30 minutes Total Time Included: examination of the patient, discharge planning, medication reconciliation, communication with other providers Tobacco Cessation at Discharge Smoking Status: Former Smoker FDA approved Prescription: non-smoker
== END 2016-07-07 13:05 | disposition home or self-care (01) | DRG 885 ==
LOC: C.EDB 13:18 → C.MHU 15:56
PROVIDERS: ADMIT Psychiatry & Neurology Child & Adolescent Psychiatry; ATTEND Psychiatry & Neurology Child & Adolescent Psychiatry
DX: F33.9 Major depressive disorder, recurrent, unspecified (principal); R45.851 Suicidal ideations; F41.9 Anxiety disorder, unspecified; Z87.891 Personal history of nicotine dependence